=== PATIENT | female | born 1970 | race Caucasian/White ===

== ENCOUNTER 2019-02-24 11:19 | Observation (INO) ==
--- NOTE | 2019-02-24 11:46 | Emergency Department Note ---
Disposition Clinical Impression: Ulcer of right lower extremity with fat layer exposed Disposition: Admitted As Inpatient Condition: Fair Time of Disposition: 13:34 General Adult HPI - General Chief complaint: ED Wound/Laceration Stated complaint: Bacteria infection Time Seen by Provider: 02/24/19 11:42 Source: patient Mode of arrival: ambulatory Limitations: no limitations Nursing Notes Reviewed: Yes Vital Signs Reviewed: Yes - History of Present Illness HPI Narrative: The patient is a 48-year-old female with history of hypertension, chronic osteomyelitis who presents a chronic leg infection of the left leg. She was admitted at this hospital yesterday but left to go get skin grafts at [facility]. However on the way up, her car broke down and she was unable to reach her destination. She decided to return to [place] for further management of her chronic ulcer. She would like to continue her care here for further management. She currently denies any progression of her symptoms or any pain. She mentions that the wound has been draining some pus and changes the dressing daily. Denies any nausea, vomiting, fevers, chills. Per ID consult on the , recommended no antibiotics and to obtain MRI and bone biopsy. Pain Scale: 7 - Related Data Home Medications Medication Instructions Recorded Confirmed NIFEdipine XL (24 HR) [Procardia 30 mg PO DAILY 04/22/18 02/24/19 XL] Ibuprofen [Ibu-200] 400 - 800 mg PO BID PRN 02/24/19 02/24/19 Levothyroxine [Synthroid] 100 mcg PO QAM 02/24/19 02/24/19 Allergies Allergy/AdvReac Type Severity Reaction Status Date / Time Amoxicillin Allergy Swelling Verified 02/24/19 11:37 of Lip/Tongue/Throat Penicillins [PCN] Allergy Swelling Verified 02/24/19 11:37 of Lip/Tongue/Throat aspirin [ASA] AdvReac Nausea Verified 02/24/19 11:37 codeine AdvReac Vomiting Verified 02/24/19 11:37 All systems ED: reviewed and negative except as stated. Review of Systems: As Per HPI Constitutional: Denies: fever, chills, weakness Eyes: Denies: eye pain, vision change ENT ED: Denies: ear pain, throat pain, hearing loss Cardiovascular: Denies: chest pain, palpitations, dyspnea on exertion, edema, syncope Respiratory: Denies: cough, dyspnea, wheezes Gastrointestinal: Denies: abdominal pain, nausea, vomiting Genitourinary: Denies: urgency, dysuria, frequency Musculoskeletal: Denies: back pain, neck pain, joint swelling Integumentary: Reports: lesions. Denies: rash, abrasion Neurological: Denies: headache, weakness, numbness, paresthesias Psychiatric: Denies: anxiety, depression, suicidal thoughts Endocrine: Denies: fatigue, polyuria Hematological/Lymphatic: Denies: easy bleeding, easy bruising Past Medical History - Past Medical History Attestation: Yes The following information was validated with the patient. Source: patient Medical history: Reports: other Surgical history: Reports: other (Tonsillectomy) Psychiatric history: Reports: anxiety, panic disorder RN LACTATION history: Reports: other - Social History Smoking Status: Current every day smoker Smokeless Tobacco Status: No Alcohol use: Reports: none Drug use: Reports: none Physical Exam - General Limitations: no limitations General appearance: alert, in no apparent distress - Head Head exam: atraumatic, normocephalic, normal inspection - Eye Eye exam: Present: normal appearance, PERRL, EOMI - ENT ENT exam: normal exam, normal oropharynx, mucous membranes moist - Neck Neck exam: Present: normal inspection, full ROM, trachea midline - Chest Chest inspection: Present: normal inspection, symmetric chest wall rise - Respiratory Respiratory exam: Present: normal lung sounds bilaterally - Cardiovascular Cardiovascular exam: Present: regular rate, normal rhythm, normal heart sounds - Abdominal Exam Abdominal exam: Present: soft, Non-Tender. Absent: tenderness, distention, guarding, rebound, rigidity - Extremities Exam Extremities exam: Absent: normal inspection (A large 20 cm ulceration noted on the anterior dugan draining purulent fluid, tender to palpation.), tenderness - Expanded Lower Extremity Exam Hip/Pelvis exam: Present: normal inspection, full ROM - Back Exam Back exam: Present: normal inspection, full ROM. Absent: tenderness - Neurological Exam Neurological exam: Present: alert, oriented X3 - Psychiatric Psychiatric exam: Present: normal affect, normal mood - Skin Skin exam: Present: warm, dry, intact, normal color Course Course Narrative: Patient was seen and examined. Vital signs are stable and within normal limits. Exam notable for large chronic ulcer on the right anterior dugan. CBC and CMP were obtained. Nicotine patch given for symptoms. - Reevaluation(s) Reevaluation #1: Patient communicated to the hospitalist team, was accepted for admission. Time: 13:33 Vital Signs Temperature 98.6 F 02/24/19 11:35 Pulse Rate 103 02/24/19 11:35 Respiratory Rate 16 02/24/19 11:35 Blood Pressure 140/81 02/24/19 11:35 O2 Sat by Pulse Oximetry 99 02/24/19 11:35 Temperature 98.6 F 02/24/19 11:35 Pulse Rate 104 02/24/19 11:52 Respiratory Rate 16 02/24/19 11:52 Blood Pressure 129/88 02/24/19 11:52 O2 Sat by Pulse Oximetry 100 02/24/19 11:52 Oxygen Delivery Oxygen Delivery Room Air Medical Decision Making - MDM Narrative Medical decision making narrative: Patient is a 48-year-old female who presented with a chronic right lower extre mity ulcer that needs to be admitted for further management. Of note, this patient was here 2 days ago, but left to get treatment at [facility]. However, she was unable to go there and returned to the treated here. His workup as our department initiated including basic labs including cultures. An infectious disease consult was appreciated with recommendations including MRI, bone biopsy, no further antibiotics. Patient denies any worsening of symptoms, suggesting wound is likely stable. Patient's labs were reviewed, CBC and CMP were unremarkable. Patient was communicated to the hospitalist for admission for further management of ulcer and wound care. - Medical Records Medical records reviewed: Yes I reviewed the patient's medical records. - Lab Data Lab results reviewed: Yes I reviewed the patient's lab results. Result diagrams: 02/24/19 12:38 02/24/19 12:38 Lab Results 02/24/19 Range/Units 12:38 WBC 5.4 (4.3-11.1) K/mcL RBC 4.13 (3.82-4.97) M/mcL Hgb 12.0 D (11.5-15.4) g/dL Hct 39.0 (35.3-44.9) % MCV 94.4 (83.0-100.0) fL MCH 29.1 (28.0-33.3) pg MCHC 30.8 L (31.6-35.5) g/dL RDW 15.9 H (11.5-14.5) % Plt Count 238 (140-400) K/mcL MPV 10.4 (9.4-12.4) fL Immature Gran % 0.4 (0-4) % Seg Neutrophils % 53.1 % Lymphocytes % 36.5 % Monocytes % 7.4 % Eosinophils % 2.0 % Basophils % 0.6 % Neutrophils # 2.9 (1.6-8.9) K/mcL Lymphocytes # 2.0 (0.6-4.6) K/mcL Monocytes # 0.4 (0.0-1.3) K/mcL Eosinophils # 0.1 (0.0-0.6) K/mcL Basophils # 0.0 (0.0-0.2) K/mcL Attestation Statement - Attestation Attestation: I have seen this patient with the resident physician, I have personally evaluated this patient. I had reviewed the chart and document dictation by the resident physician and aM in agreement with the information documented by the resident physician. Please see documentation by the resident physician for complete chart including past medical history, family medical history, review of systems, current history and physical and laboratory and imaging studies. I was present for all procedures, provided direct supervision for all procedures, was present for the entirety of all procedures and provided direct guidance during the procedures. Please see documentation by the resident physician for any procedures performed. I have reviewed all interpretations of EKGs, and reviewed all EKGs performed on patient's as well. I have also reviewed reports of imaging as provided by radiology.
--- NOTE | 2019-02-24 12:05 | Emergency Department Note ---
Disposition Clinical Impression: Ulcer of right lower extremity with fat layer exposed Disposition: Admitted As Inpatient Condition: Fair Time of Disposition: 12:05 General Adult HPI - General Stated complaint: Bacteria infection Time Seen by Provider: 02/24/19 11:42 Source: patient Mode of arrival: ambulatory Limitations: no limitations Nursing Notes Reviewed: Yes Vital Signs Reviewed: Yes - History of Present Illness Pain Scale: 7 - Related Data Home Medications Medication Instructions Recorded Confirmed Levothyroxine [Synthroid] 25 mcg PO HS 06/08/15 02/29/16 Gabapentin 600 mg PO TID 02/05/18 Benzonatate 04/22/18 Calcium 600 mg PO BID 04/22/18 04/22/18 Fluticasone Propionate Nasal 50 mcg BID 04/22/18 04/22/18 Loratadine 10 mg PO QID 04/22/18 04/22/18 Procardia XL 30 mg PO 04/22/18 hydrOXYzine HCl 50 mg PO 04/22/18 Previous Rx's Medication Instructions Recorded Ibuprofen 800 mg PO Q8HR PRN #30 tablet 02/05/18 Clindamycin HCl 300 mg PO TID #30 capsule 07/14/18 Allergies Allergy/AdvReac Type Severity Reaction Status Date / Time Amoxicillin Allergy Swelling Verified 02/24/19 11:37 of Lip/Tongue/Throat Penicillins [PCN] Allergy Swelling Verified 02/24/19 11:37 of Lip/Tongue/Throat aspirin [ASA] AdvReac Nausea Verified 02/24/19 11:37 codeine AdvReac Vomiting Verified 02/24/19 11:37 Past Medical History - Past Medical History Medical history: Reports: other Surgical history: Reports: other (Tonsillectomy) Psychiatric history: Reports: anxiety, panic disorder [employer] history: Reports: other - Social History Smoking Status: Current every day smoker Smokeless Tobacco Status: No Alcohol use: Reports: none Drug use: Reports: none Physical Exam - General Limitations: no limitations General appearance: alert, in no apparent distress Course Vital Signs Temperature 98.6 F 02/24/19 11:35 Pulse Rate 103 02/24/19 11:35 Respiratory Rate 16 02/24/19 11:35 Blood Pressure 140/81 02/24/19 11:35 O2 Sat by Pulse Oximetry 99 02/24/19 11:35 Temperature 98.6 F 02/24/19 11:35 Pulse Rate 104 02/24/19 11:52 Respiratory Rate 16 02/24/19 11:52 Blood Pressure 129/88 02/24/19 11:52 O2 Sat by Pulse Oximetry 100 02/24/19 11:52 Oxygen Delivery Oxygen Delivery Room Air Attestation Statement - Attestation Attestation: I have seen this patient with the resident physician, I have personally evaluated this patient. I had reviewed the chart and document dictation by the resident physician and aM in agreement with the information documented by the resident physician. Please see documentation by the resident physician for complete chart including past medical history, family medical history, review of systems, current history and physical and laboratory and imaging studies. I was present for all procedures, provided direct supervision for all procedures, was present for the entirety of all procedures and provided direct guidance during the procedures. Please see documentation by the resident physician for any procedures performed. I have reviewed all interpretations of EKGs, and reviewed all EKGs performed on patient's as well. I have also reviewed reports of imaging as provided by radiology. Patient presented to the emergency department with chief complaint of right leg wound, with some increased drainage. She was seen here yesterday, they were originally going to admit her, but then surgery saw her and stated that she might be better served at [facility] because that is where she has had prior skin grafts and the patient decided to leave, she was driving herself up there in her car broke down, and she was unable to make it up there, states that she has decided that she really does not want another skin graft and does not want to go to [facility] much rather be here she was told yesterday that she needs an MRI and a bone biopsy so she came back to the emergency department. Nothing is changed yesterday to fevers no chills no numbness no weakness no chest pain or shortness of breath no other acute symptoms she is here for this wound which is draining increased yellow drainage. Reviewing her chart she was originally to be admitted in fact was seen by infectious disease in the emergency department, who recommended that the patient not to be continued on antibiotics because she did not have a fever no increased pain no leukocytosis, but recommended MRI and bone biopsy. Blood cultures are already pending from yesterday basic laboratory studies were repeated and hospitalist was contacted to admit this patient today as was the plan yesterday for MRI and bone biopsy and further evaluation by infectious disease as well as surgery.
[2019-02-24] MEDS ORDERED: Nicotine 14 MG PATCH.TD24 TD ONE (12:15)
[2019-02-24 13:01] LABS: Basophils % 0.6 %; Eosinophils # 0.1 K/mcL (0.0-0.6); Immature Granulocytes % 0.4 % (0-4); Lymphocytes % 36.5 %; Mean Corpuscular HGB Conc 30.8 g/dL (31.6-35.5); Mean Corpuscular Hemoglobin 29.1 pg (28.0-33.3); Mean Corpuscular Volume 94.4 fL (83.0-100.0); Mean Platelet Volume 10.4 fL (9.4-12.4); Monocytes # 0.4 K/mcL (0.0-1.3); Monocytes % 7.4 %; Neutrophils # 2.9 K/mcL (1.6-8.9); Platelet Count 238 K/mcL (140-400); Red Blood Count 4.13 M/mcL (3.82-4.97); Red Cell Distribution Width 15.9 % (11.5-14.5); Segmented Neutrophils % 53.1 %; White Blood Count 5.4 K/mcL (4.3-11.1)
[2019-02-24 13:33] LABS: Alanine Aminotransferase 10 Units/L (7-52); Albumin 3.9 g/dL (3.5-5.7); Albumin/Globulin Ratio 0.8 (1.1-2.2); Alkaline Phosphatase 85 Units/L (34-104); Aspartate Amino Transferase 15 Units/L (13-39); BUN/Creatinine Ratio 16 (6-26); Bilirubin,Total 0.3 mg/dL (0.3-1.0); Blood Urea Nitrogen 15 mg/dL (6-20); Calcium 9.5 mg/dL (8.6-10.3); Carbon Dioxide 26 mEq/L (23-29); Chloride 103 mEq/L (98-107); Globulin 4.7 g/dL (2.4-3.5); Glucose 71 mg/dL (70-105); Osmolality,Calculated 283 (280-300); Potassium 3.9 mEq/L (3.5-5.1); Sodium 137 mEq/L (136-145); Total Protein 8.6 g/dL (6.4-8.9); eGFR For African Americans > 60 (> 60); eGFR For Non-African Americans > 60 (> 60)
[2019-02-24] MEDS ORDERED: Naloxone 0.4 MG/ML INJ IVP PRN (14:19)
--- NOTE | 2019-02-24 14:31 | Internal Med History&Physical ---
Date of Encounter: 02/24/19 Time of Encounter: 14:00 Internal Medicine - H&P: HPI Chief complaint: RIght leg ulceration. History of present illness: Ms. Richards is a 48 year old female with a past medical history significant for hypertension, presented to the emergency department yesterday for the evaluation of right nonhealing leg wound infection. Patient had this one for almost 2-1/2 years now, it has been poorly healing from a failed skin graft. Patient mention s that she has not been taking care of wound because of some social issues. About 2 weeks back, she starting having pain and foul smell coming out of the phone. She went to the urgent care and she was given another Keflex or clindamycin. Patient was taking antibiotics for the last 2 weeks but she did not get the relief and the pain was getting worse. A few days back, patient was picked up by the police on an old boyfriend for the past. She was not completely since then. She was given the furlough from the half-way today because of progressively worsening wound. Patient denies nausea, vomiting, fever, chills, rigors, paresthesia, weakness, peripheral artery disease, recent trauma or injury. Patient mentioned that she had multiple infections in the past but she never had osteomyelitis. She never got the antibiotics for more than 10 days in the past. Patient previous cultures were reviewed. Patient had infection with Enterobacter on 07/14/2018, which was sensitive to multiple antibiotcs. 09/04/15: Would culture grew Stenotrophomonas maltophilia Sensitive to Levofloxacin, Trimehtprim/Sulfamethoxazole. She also had arterial studies done which were negative for peripheral arterial disease. Laboratory workup revealed anemia but no leukocytosis. X-ray of the right leg was done which showed soft tissue swelling extending from the mid right leg inferiorly, most severe in the distal right leg and right ankle, no finding for the necrotizing fasciitis. Periosteal thickening along the medial aspect of the right tibial distal metadiaphysis which most likely represents subjective periostitis, concerning for chronic osteomyelitis Patient left yesteday as she wanted to go to [facility] but she came back again today for the admission and further management. No new complaints today. Laboratory workup did not reveal any new findings. Pt will be admitted. Past Med Surg Social Fam HX - Past Medical History Medical history: other Additional medical history: Raynauds Psychiatric history: anxiety, panic disorder - Past Surgical History Surgical History: other (Tonsillectomy) Additional surgical history: irrigation and debridement right leg,leep, radiation to thyroid - Social History Smoking Status: Current every day smoker Smokeless Tobacco Status: No Alcohol use: none Drug use: none - Family History Mother Family Member Ethnicity: Non- Living Status: Hx Family Cardiac Disorders: No Hx Family Respiratory Disorders: No Hx Family Cancer: Yes Hx Family GI Disorders: No Hx Family Endocrine Disorder: No Hx Family Neuromuscular Disorders: No Hx Family Neurologic Disorders: No Hx Family HEENT Disorders: No Hx Family Autoimmune Disorders: No Father Living Status: Hx Family Cardiac Disorders: Yes Hx Family Respiratory Disorders: Yes Internal Medicine - H&P: Meds NIFEdipine XL (24 HR) [Procardia XL] 30 mg PO DAILY 04/22/18 [History] Ibuprofen [Ibu-200] 400 - 800 mg PO BID PRN 02/24/19 [History] Levothyroxine [Synthroid] 100 mcg PO QAM 02/24/19 [History] Allergy/AdvReac Type Severity Reaction Status Date / Time Amoxicillin Allergy Swelling Verified 02/24/19 11:37 of Lip/Tongue/Throat Penicillins [PCN] Allergy Swelling Verified 02/24/19 11:37 of Lip/Tongue/Throat aspirin [ASA] AdvReac Nausea Verified 02/24/19 11:37 codeine AdvReac Vomiting Verified 02/24/19 11:37 All Systems PM: A 10-system review of systems was performed and is negative for pertinent findings except as documented above in the HPI. Review of systems: General: Negative for fever chills, rigors. HEENT: Negative for swelling, discharge from nose, discharge from ears. EYES: Negative for any discharge from the eyes. Respiratory: Negative for shortness of breath, orthopnea, exertional dyspnea. Cardiovascular: Negative for chest pain, shortness of breath, orthopnea, PND. Gastrintestical: Negative for diarrhea, constipation, blood in stools. Genitourinary: Negative for dysuria, hematuria, nocturia, increased frequency of urine. Hematological: Negative for blood loss, negative for active cancer. Neurological: Negative for headache, dizziness, blurry vision, loss os power and sensations. Endocrinology: Negative for constipation, polyuria, polydipsia. Psychiatric: Negative for anxiety or depression. - Constitutional Vitals: Temp Pulse Resp BP Pulse Ox 98.6 F 89 16 134/73 100 02/24/19 11:35 02/24/19 13:54 02/24/19 13:54 02/24/19 13:54 02/24/19 13:54 Exam: General: Alert and oriented, no physical distress, able to follow commands. HEENT: No thyromegaly, no lymphadenopathy, no discharge. Eyes: No discharge. Respiratory: Normal vesicular breathing, no added sounds, breathing equal in both sides. CVS: Normal heart sounds, no murmurs, no edema. Extremities: No peripheral edema, peripheral pulses intact. A 9cmx 12 cm ulceration of the right leg, with foul smelling drainage, erythema in the surrounding area, tnederness appreciated, warmer than the pther leg. No bleeding. Lymph nodes: No lymphadenopathy Gastrointestinal: Soft, nontender abdomen, normal abdominal sounds. No distention noted. Genitourinary: No paravertebral tenderness. Neurological: Alert and oriented. No focal deficits. Cranial nerves II-XII intact. Internal Med - H&P Results - Labs CBC & Chem 7: 02/24/19 12:38 02/24/19 12:38 Labs: Short CBC 02/24/19 Range/Units 12:38 WBC 5.4 (4.3-11.1) K/mcL Hgb 12.0 D (11.5-15.4) g/dL Hct 39.0 (35.3-44.9) % Plt Count 238 (140-400) K/mcL Neutrophils # 2.9 (1.6-8.9) K/mcL BMP 02/24/19 12:38 Sodium 137 Potassium 3.9 Chloride 103 Carbon Dioxide 26 BUN 15 Creatinine 0.92 Glucose 71 Calcium 9.5 Liver Function 02/24/19 Range/Units 12:38 Total Bilirubin 0.3 (0.3-1.0) mg/dL AST 15 (13-39) Units/L ALT 10 (7-52) Units/L Alkaline Phosphatase 85 (34-104) Units/L Albumin 3.9 (3.5-5.7) g/dL - Assessment and Plan (1) Cellulitis of right lower extremity Current Visit: Yes Status: Acute Assessment and plan: Foul swelling discharge, concerning for cellulitis. Patient has not multiple infection in the past and she has been on multiple antibiotics. Most recent infection as mentioned above. No signs of fever, chills, leukocytosis. X-ray concerning for chronic osteomyelitis Plan: Wound care. Considering there are concern for the chronic ostial mellitus, and the patient is hemodynamically stable, we will hold further use of antibiotics at this point. Obtain wound cultures. Obtain MRI. podiatry on board, plan for the bone biopsy. Keep nothing by mouth from midnight if the patient needs any procedures. Infectious disease consult. -Order CRP adn sed rate (2) Chronic osteomyelitis involving lower leg Current Visit: Yes Status: Acute Assessment and plan: X-ray concerning for ostial mellitus. Obtain MRI. Hold off on the antibiotics. Qualifiers: Laterality: right Qualified Code(s): M86.661 - Other chronic osteomyelitis, right tibia and fibula (3) DVT prophylaxis Current Visit: No Status: Acute Assessment and plan: Subcutaneous heparin (4) Hypothyroid Current Visit: No Status: Acute Assessment and plan: Take levothyroxine at home. We will restart the patient on levothyroxine at home dsose Qualifiers: Hypothyroidism type: unspecified Qualified Code(s): E03.9 - Hypothyroidism, unspecified (5) Raynauds disease Current Visit: No Status: Acute Assessment and plan: -hx of raynauds -Takes calcium channel stanley which will be continued Qualifiers: Raynaud?s-associated gangrene presence: without gangrene Qualified Code(s): I73.00 - Raynaud's syndrome without gangrene (6) Tobacco abuse Current Visit: No Status: Acute Assessment and plan: -Counseled to stop smoking Order nicotine patches (7) Hypertension Current Visit: No Status: Acute Assessment and plan: -Continue home nifedipine Qualifiers: Hypertension type: essential hypertension Qualified Code(s): I10 - Essential (primary) hypertension - Time Spent With Patient Total time spent is greater than 50% in coordination of care (as documented) at patient's floor/unit and/or counseling patient:
[2019-02-24] MEDS ORDERED: Acetaminophen 325 MG TABLET PO PRN (14:41)
--- NOTE | 2019-02-24 15:48 | Podiatry Consult Note ---
Date of Encounter: 02/24/19 Time of Encounter: 15:43 Assessment and Plan (1) Ulcer of right lower extremity with fat layer exposed Current visit: Yes Status: Acute Assessment: Ulceration noted to right lower extremity measuring 20 x 14 x 0.3 cm Slough noted to wound bed WBC. 5.4, afebrile Discoloration of skin noted above and below ulceration Plan: Recommend transfer to [facility] for plastic surgery consult as she may need large graft and patient follows with wound care physician there MR pending ESR, CRP pending Wound care orders placed, nursing to change Impression: XR/XR tibia fibula RT IMPRESSION: 1. Soft tissue swelling extending from the mid right leg inferiorly is most severe in the distal right leg and right ankle, potentially due to cellulitis and/or lymphedema. There is suspected ulceration anteromedially in the distal right leg with possible posterior involvement in the mid to distal right leg. No findings of underlying necrotizing fasciitis. 2. New periosteal thickening along the medial aspect of the right tibial distal metadiaphysis most likely represents reactive periostitis. Chronic osteomyelitis could appear similar, but there is no apparent disruption of the underlying cortex. Consider MRI. D/ / Ezequiel Molina MD / Ezequiel Molina MD Interpreting Provider: Ezequiel Molina MD History of Present Illness Chief complaint: Right lower extremity ulcer HPI: Ms. Richards is a 48 year old female who presented to the ER yesterday with complaints of right lower extremity ulceration. Patient left AMA and returns today with complaints of right lower extremity ulceration. PMH significant for Raynauds disease and hypothyroidism. Patient is a half pack a day smoker. Denies any illicit drug use or alcohol abuse. Reports socially drinking. Briefly, patient has had chronic ulceration of right lower extremity that has been followed since 2014. Records obtained per [employer] note that patient had fasciotomy of right lower extremity due to abscess in 2014. Followed with Dr. Beyer where she had a failed split thickness graft, until 2016. After that patient reports following with physician in [place] who she states was unable to help with right lower extremity ulceration and then she began to follow with [facility] wound care center but states she has not seen them in the last 6 months. Reports right lower extremity has not been debrided in 6 months to a year. Patient reports she completes dressing changes to right lower extremity consisting of Adaptic, gauze, and Kerlix. Patient reports over the last 3 weeks the ulceration has gotten worse stating is extending distally towards the foot. Reports moderate amount of drainage. Reports she knows wound is infected as there has been a foul odor coming from wound. Reports going to urgent care and ER and receiving antibiotics have not been beneficial. Again, Ms. Richards is a 48-year-old female who is consulted to the podiatry group for right lower extremity ulceration. Patient is unknown to the podiatry group. Patient has ulceration encompassing the majority of right lower extremity. Ulcer measures 20 x 15 x 0.3 cm. WBC 5.4. Reports nausea. Denies any fevers, chills, vomiting or diarrhea. Denies any chest pain, calf pain, or shortness of breath. X-ray obtained yesterday. MRI pending, ESR pending, CRP pending. Curbside consult obtained with Dr. Dale regarding patient, and he recommends patient be transferred to issue for plastic surgery consult due to patients Raynaud's disease. Discussed with Dr. Regan as well, he is also recommending transfer to [facility] for further management of right lower extremity ulcer and plastic surgery consult. Discussed recommendations with hospitalist. Past Med Surg Social Fam HX - Past Medical History Medical history: other Additional medical history: Raynauds Psychiatric history: anxiety, panic disorder - Past Surgical History Surgical History: other (Tonsillectomy) Additional surgical history: irrigation and debridement right leg,leep, radiation to thyroid - Social History Smoking Status: Current every day smoker Smokeless Tobacco Status: No Alcohol use: none Drug use: none - Family History Mother Family Member Ethnicity: Non- Living Status: Hx Family Cardiac Disorders: No Hx Family Respiratory Disorders: No Hx Family Cancer: Yes Hx Family GI Disorders: No Hx Family Endocrine Disorder: No Hx Family Neuromuscular Disorders: No Hx Family Neurologic Disorders: No Hx Family HEENT Disorders: No Hx Family Autoimmune Disorders: No Father Living Status: Hx Family Cardiac Disorders: Yes Hx Family Respiratory Disorders: Yes Medications and Allergies NIFEdipine XL (24 HR) [Procardia XL] 30 mg PO DAILY 04/22/18 [History] Ibuprofen [Ibu-200] 400 - 800 mg PO BID PRN 02/24/19 [History] Levothyroxine [Synthroid] 100 mcg PO QAM 02/24/19 [History] Allergy/AdvReac Type Severity Reaction Status Date / Time Amoxicillin Allergy Swelling Verified 02/24/19 11:37 of Lip/Tongue/Throat Penicillins [PCN] Allergy Swelling Verified 02/24/19 11:37 of Lip/Tongue/Throat aspirin [ASA] AdvReac Nausea Verified 02/24/19 11:37 codeine AdvReac Vomiting Verified 02/24/19 11:37 All Systems Reviewed: The remainder of the systems were reviewed and are negative - Constitutional Constitutional: no fever(s) - Cardiovascular Cardiovascular: leg edema, leg ulcers, pedal edema, no chest pain - Respiratory Respiratory: no cough, no dyspnea - Musculoskeletal Musculoskeletal: no numbness, no tingling Physical Exam - Constitutional Vitals: Temp Pulse Resp BP Pulse Ox 97.6 F 60 15 126/70 93 02/24/19 14:54 02/24/19 14:54 02/24/19 14:54 02/24/19 14:54 02/24/19 14:54 Exam: Constitiutional: Alert and oriented x 3. Well nourished. No acute distress noted Vascular: 1/4 DP/PT bilaterally, CFT <3 sec to all digits, warm to warm from tibia to toes bilaterally, no calf pain with squeeze RLE Neurologic: Sensation to touch, normal plantar response Dermatologic: Large ulceration noted to RLE measuring 20 x 15 x 0.3 cm, slough noted to wound bed, foul odor noted, discoloration noted to skin above and below ulcer Musculoskeletal: 5/5 muscle strength and normal tone bilaterally. Results - Labs Result Diagrams: 02/24/19 12:38 02/24/19 12:38 Labs: Abnormal lab results MCHC 30.8 g/dL (31.6-35.5) L 02/24/19 12:38 RDW 15.9 % (11.5-14.5) H 02/24/19 12:38 Globulin 4.7 g/dL (2.4-3.5) H 02/24/19 12:38 Albumin/Globulin Ratio 0.8 (1.1-2.2) L 02/24/19 12:38 H & H 02/24/19 Range/Units 12:38 Hgb 12.0 D (11.5-15.4) g/dL Hct 39.0 (35.3-44.9) % All other labs normal. - Diagnostic results Ankle/Foot x-ray: report reviewed Consult Discharge Plan - Plan Referrals: Farrukh Underwood DO [Primary Care Provider] -
[2019-02-24] MEDS: *HR* Heparin 5,000 UNIT/ML VIAL SQ SCH (16:30)
[2019-02-25 03:00] LABS: Basophils % 0.7 %; Eosinophils # 0.2 K/mcL (0.0-0.6); Eosinophils % 2.5 %; Hematocrit 32.9 % (35.3-44.9); Hemoglobin 10.6 g/dL (11.5-15.4); Immature Granulocytes % 0.5 % (0-4); Lymphocytes # 2.9 K/mcL (0.6-4.6); Lymphocytes % 48.2 %; Mean Corpuscular HGB Conc 32.2 g/dL (31.6-35.5); Mean Corpuscular Hemoglobin 29.5 pg (28.0-33.3); Mean Corpuscular Volume 91.6 fL (83.0-100.0); Mean Platelet Volume 10.4 fL (9.4-12.4); Monocytes # 0.5 K/mcL (0.0-1.3); Monocytes % 8.6 %; Neutrophils # 2.4 K/mcL (1.6-8.9); Platelet Count 204 K/mcL (140-400); Red Blood Count 3.59 M/mcL (3.82-4.97); Red Cell Distribution Width 15.6 % (11.5-14.5); Segmented Neutrophils % 39.5 %
[2019-02-25 03:07] LABS: BUN/Creatinine Ratio 19 (6-26); Blood Urea Nitrogen 16 mg/dL (6-20); Calcium 8.8 mg/dL (8.6-10.3); Carbon Dioxide 27 mEq/L (23-29); Chloride 110 mEq/L (98-107); Glucose 123 mg/dL (70-105); Magnesium 2.2 mg/dL (1.6-2.6); Osmolality,Calculated 291 (280-300); Potassium 4.4 mEq/L (3.5-5.1); Sodium 139 mEq/L (136-145); eGFR For African Americans > 60 (> 60); eGFR For Non-African Americans > 60 (> 60)
[2019-02-25] MEDS: *HR* Heparin 5,000 UNIT/ML VIAL SQ SCH (06:08)
[2019-02-25] MEDS ORDERED: Nicotine 14 MG PATCH.TD24 TD SCH (09:00)
[2019-02-25] MEDS ORDERED: NIFEdipine XL (24 HR) 30 MG TAB.ER.24 PO SCH (09:00)
[2019-02-25 10:57] VITALS: BP 120/74
[2019-02-25] MEDS ORDERED: Nicotine 14 MG PATCH.TD24 TD ONE (12:03)
--- NOTE | 2019-02-25 14:09 | Infectious Disease Consult ---
Infectious Disease-Consult - Encounter Date/Time Date of Encounter: 02/25/19 Time of Encounter: 14:09 - Data of Consult Requesting Physician: Mehnaz Morse Primary Care Provider: Farrukh Underwood DO - HPI HPI: 48 year-old female presents to the ED for light right nonhealing leg wound infection. Infectious disease has been consulted for recommendations of antibiotics for suspected cellulitis/osteomyelitis Patient is a 48-year-old female with history of Raynauds disease, IVDU, hypothyroidism hypertension, chronic non-healing wound who presented to the ED because of right non-healing leg wound infection. Patient endorses that she has a right lower extremity wound which was initially began as a blood blister which underwent a split thickness skin graft here by Dr. eByer 4 yrs ago. Patient was eventually send to [facility] for her wound care, and every once in a while the wound has been infected. Patient was seen at urgent care about 6 months ago for infection of the wound and was prescribed Bactrim and Keflex. Patient also endorses lapse in her medication supplies for her wound because of change in the providers at [facility]. She was last seen by the web operations specialist a few months ago and her steroid ointment is no longer being delivered to her for the past 2 months although she does get her dressing supplies. She endorses over 2 weeks ago she was having pain and foul smell from her wound, went to the Urgent care at the [facility], was given Keflex/Clindamycin. Patient endorses completing her course of antibiotics but has not had any benefit. She denies any other systemic signs like fever, shortness of breath, paresthesia and numbness and ti ngling. 07/14/18: Culture grew Enterobacter cloaca complex R: Amoxiccilin/Clavulinic acid and Cefazolin 09/04/15: Would culture grew Stenotrophomonas maltophilia S: Levofloxacin, Trimehtprim/Sulfamethoxazole Initial workup in the ER showed that patient was afebrile, pulse of 85, RR:18, satting at 99% on room air. Blood pressure of 145/87. Labs: No leukocytosis, Hb of 10.5 Imaging: Soft tissue swelling extending from the midright leg inferiorly is most severe in the distal right leg and right ankle potentially due to cellulitis and or lymphedema. Suspected ulceration anterior medially in the distal right leg with possible posterior involvement in the mid distal right leg. No findings of necrotizing fasciitis. Periosteal thickening along the medial aspect of the right tibial distal diaphoresis most likely represents reactive periostitis. Chronic osteomyelitis could appear similar but there is no apparent disruption of underlying cortex She also had a tox screen in the ED was positive for amphetamines and Buprenorphine - ROS Review of Systems: A 10-system review of systems was performed and is negative for pertinent findings except as documented above in the HPI. - Results CBC & Chem 7: 02/25/19 02:35 02/25/19 02:35 - Exam Vitals: Temp Pulse Resp BP Pulse Ox 97.6 F 88 16 120/74 98 02/25/19 10:54 02/25/19 10:54 02/25/19 10:54 02/25/19 10:54 02/25/19 10:54 Exam: Gen.: Vitals noted. No acute distress. Alert, awake and oriented * [address], [address], and time, well developed, well-nourished resting comfortably in bed. Plea sommer. Cardiac: RRR, no murmur, +S1/S2, No BLE edema, PMI non-displaced Pulmonary: CTA bilaterally, no wheezes, rales or rhonchi, equal chest expansion, unlabored breathing Extremities: Chronic ulcer on the left lower extremity with irregular boundary and serosanguineous discharge but no bleeding or erythema, no evidence of necrosis or surrounding edema . Skin: warm and dry, feels warm, clammy, MSK: ROM not assessed. no joint swelling noted, gait not assessed while in bed. Non tender calf or clubbing, no cyanosis/clubbing/ or edema Neuro: A&O, moves all extremities, no focal deficits, sensation intact Psych: Appropriate mood and behavior, normal speech. NIFEdipine XL (24 HR) [Procardia XL] 30 mg PO DAILY 04/22/18 [History] Levothyroxine [Synthroid] 100 mcg PO QAM 02/24/19 [History] Allergy/AdvReac Type Severity Reaction Status Date / Time Amoxicillin Allergy Swelling Verified 02/24/19 11:37 of Lip/Tongue/Throat Penicillins [PCN] Allergy Swelling Verified 02/24/19 11:37 of Lip/Tongue/Throat aspirin [ASA] AdvReac Nausea Verified 02/24/19 11:37 codeine AdvReac Vomiting Verified 02/24/19 11:37 - Assessment and Plan (1) Ulcer of right lower extremity with fat layer exposed Status: Acute - patient has a chronic wound on her right dugan for the past 5 yrs measuring 5 cm * 6 cm . - She underwent split-thickness skin grafting here at [facility] 14 years ago but has had multiple infections and has been on multiple antibiotics since then. -She was to [facility] for her wound care but has not seen her provider for the last couple months -Patient endorses that she had a foul-smelling discharge from the wound and went to the urgent care about 3 weeks ago and was given clindamycin/Keflex. - 07/14/18: Culture grew Enterobacter cloaca complex S: Cefepime, ceftazidime, ceftriaxone, ciprofloxacin, ertapenem, gentamicin, imipenem, levofloxacin, Zosyn, tobramycin, trimethoprim/sulfamethoxazole. - 09/04/15 : Would culture grew stenotrophomonas maltophilia, S: Levofloxacin and rimethoprim/sulfamethoxazole. - Workup in the ED showed that patient was afebrile, pulse of 85, RR 18, satting at 99% room air. -X-ray of the right leg was done which showed soft tissue swelling extending from the mid right leg inferiorly, most severe in the distal right leg and right ankle, no finding for the necrotizing fasciitis. Periosteal thickening along the medial aspect of the right tibial distal metadiaphysis which most likely represents subjective periostitis, concerning for chronic osteomyelitis -I of the left lower extremity showed no osteomyelitis or other acute osseous abnormality. There was mild chronic-appearing periosteal thickening along the medial aspect of the distal tibial diet this is. Diffuse subcutaneous edema compatible with lymphedema versus cellulitis PLAN: - Get ESR - Bone biopsy to rule in/out osteomyelitis - Obtain wound cultures - Since the patient is afebrile and is hemodynamically stable there is no ind ication for antibiotics at this point. - Since patient has been managed at [facility] for her chronic wound and considering the fact that she might plastic surgery intervention, we might consider sending her to [facility] for further wound care SNOMED Code(s): 80251101 (2) Hypertension Status: Acute Qualifiers: Hypertension type: essential hypertension Qualified Code(s): I10 - Essent ial (primary) hypertension SNOMED Code(s): 74095277 (3) Hypothyroid Status: Acute Qualifiers: Hypothyroidism type: unspecified Qualified Code(s): E03.9 - Hypothyroidism, unspecified SNOMED Code(s): 71852086 (4) Raynauds disease Status: Acute Qualifiers: Raynaud?s-associated gangrene presence: without gangrene Qualified Code(s): I73.00 - Raynaud's syndrome without gangrene SNOMED Code(s): 762019518 (5) Tobacco abuse Status: Acute SNOMED Code(s): 976880068 Past Med Surg Social Fam HX - Past Medical History Medical history: other Additional medical history: Raynauds Psychiatric history: anxiety, panic disorder - Past Surgical History Surgical History: other (Tonsillectomy) Additional surgical history: irrigation and debridement right leg,leep, radiati on to thyroid - Social History Smoking Status: Current every day smoker Smokeless Tobacco Status: No Alcohol use: none Drug use: none - Family History Mother Family Member Ethnicity: Non- Living Status: Hx Family Cardiac Disorders: No Hx Family Respiratory Disorders: No Hx Family Cancer: Yes Hx Family GI Disorders: No Hx Family Endocrine Disorder: No Hx Family Neuromuscular Disorders: No Hx Family Neurologic Disorders: No Hx Family HEENT Disorders: No Hx Family Autoimmune Disorders: No Father Living Status: Hx Family Cardiac Disorders: Yes Hx Family Respiratory Disorders: Yes Consult Discharge Plan - Plan Instructions: Cellulitis (DC), Hypothyroidism (DC), Peripheral Vascular Disorders (DC), Chronic Hypertension (DC), Anemia (GEN) Additional Instructions: Follow up at [facility], will need to follow up with the plastic surgery. CAn result in further morbidity if fails to get her condition treated. Referrals: Farrukh Underwood DO [Primary Care Provider] - 03/05/19 11:30 am - Attending Attestation Assessment and Plan 1.pyoderma Gangrenosum 2.Reynaud's 3.hypothyroidism 4.IVDU 5.periosteitis 6.RLE ulcerated lesion 7.Tobacco abuse. Was caught many times by nursing off the floor outside the building smoking REcommendations After long discussion with the patient, she states that she has to leave because she has a court date tomorrow again. Discussed with the hospitalist team. He should not is going to be discharged and she is given a follow-up with [facility]. She tells me her [facility] has been a drop her off and she has a brand-new car so sheis not going to break down on the highway like the last time.
--- NOTE | 2019-02-25 14:46 | Discharge Summary ---
- NOTES TO OUTPATIENT PROVIDER Notes to Outpatient Provider: Patient to follow up with the [facility] wound care tomorrow Date of Encounter: 02/25/19 Time of Encounter: 09:00 - Discharge Diagnosis (1) Hypertension Priority: Secondary Status: Acute Qualifiers: Hypertension type: essential hypertension Qualified Code(s): I10 - Essential (primary) hypertension (2) Hypothyroid Priority: Secondary Status: Acute Qualifiers: Hypothyroidism type: unspecified Qualified Code(s): E03.9 - Hypothyroidism, unspecified (3) Ulcer of right lower extremity with fat layer exposed Priority: Primary Status: Acute (4) Raynauds disease Priority: Secondary Status: Acute Qualifiers: Raynaud?s-associated gangrene presence: without gangrene Qualified Code(s): I73.00 - Raynaud's syndrome without gangrene (5) Tobacco abuse Priority: Secondary Status: Acute Hospital course: Ms. Richards is a 48 year old female with a past medical history significant for hypertension, chronic wund of the right lower leg, presented to the hospital because of the right nonhealing wound infection. Patient was admitted with concern for osteomyelitis. MRI did not show osteomyelitis. ID was consulted and there are concerns for the pyoderma gangreosum. Patient has a history of skin graft with graft failure. ID recommended to transfer the patient to [facility] fo r further management and plastic surgery. Call was placed to [facility] for the transfer. But the patient mentioned that she has to go to home because she has to appear before the [employer]person [employer] tomorrow. Patient was told that she will have to go to [facility] tomorrow. In case, patient does not follow-up and get her condition treated, she can potentially lose her leg, or get sepsis with further morbidity. Patient was understanding and mentined that she will go to [facility] tomorrow after appearing before the [employer] for further management and follow up. Patient is being discharged in stable condition. - Time Spent with Patient Total time spent providing and/or coordinating discharge services:45 minutes Time spent: Greater than 30 minutes - Discharge Medications Prescriptions: Continued NIFEdipine XL (24 HR) [Procardia XL] 30 mg PO DAILY Levothyroxine [Synthroid] 100 mcg PO QAM Discontinued Ibuprofen [Ibu-200] 400 - 800 mg PO BID PRN PRN Reason: Pain Home Medications: NIFEdipine XL (24 HR) [Procardia XL] 30 mg PO DAILY 04/22/18 [History] Levothyroxine [Synthroid] 100 mcg PO QAM 02/24/19 [History] Allergies/Adverse Reactions: Allergy/AdvReac Type Severity Reaction Status Date / Time Amoxicillin Allergy Swelling Verified 02/24/19 11:37 of Lip/Tongue/Throat Penicillins [PCN] Allergy Swelling Verified 02/24/19 11:37 of Lip/Tongue/Throat aspirin [ASA] AdvReac Nausea Verified 02/24/19 11:37 codeine AdvReac Vomiting Verified 02/24/19 11:37 Date of admission: 02/24/19 14:10 Primary care physician: Farrukh Underwood DO Consults: 02/24/19 14:24 Consult to Infectious Diseases [CONS] Routine Consulting Provider: Infectious Disease [facility] Reason for Consult: osteomyelitis Call Completed: No Consult to Podiatry [CONS] Routine Consulting Provider: [facility] Reason for Consult: Biopsy needed fro osteomyelitis Call Completed: Yes - Constitutional Vitals: Temp Pulse Resp BP Pulse Ox 97.6 F 88 16 120/74 98 02/25/19 10:54 02/25/19 10:54 02/25/19 10:54 02/25/19 10:54 02/25/19 10:54 Exam: General: Alert and oriented, no physical distress, able to follow commands. Respiratory: Normal vesicular breathing, no added sounds, breathing equal in both sides. CVS: Normal heart sounds, no murmurs, no edema. Extremities: No peripheral edema, peripheral pulses intact. A 9cmx 12 cm ulceration of the right leg, with foul smelling drainage, erythema in the conley rrounding area, tnederness appreciated, warmer than the pther leg. No bleeding. Lymph nodes: No lymphadenopathy Gastrointestinal: Soft, nontender abdomen, normal abdominal sounds. No distention noted. Genitourinary: No paravertebral tenderness. Neurological: Alert and oriented. No focal deficits. Cranial nerves II-XII intact. - Patient Status Disposition: Home, Self-Care Condition: Fair Functional capacity at discharge: independent ambulation Overall status at discharge: patient is not back to baseline - Discharge Instructions Follow Up With: Farrukh Underwood DO [Primary Care Provider] - 03/05/19 11:30 am Additional Instructions: Follow up at [facility], will need to follow up with the plastic surgery. CAn result in further morbidity if fails to get her condition treated.
== END 2019-02-25 15:41 | disposition home or self-care (01) ==
LOC: EMEROOARM 11:19 → 3BNU 11:19 → SUATTDRO 14:10 → 3BNU 14:51
PROVIDERS: ADMIT Student in an Organized Health Care Education/Training Program; ATTEND Internal Medicine